=== PATIENT | male | born 1980 | race Caucasian/White ===

== ENCOUNTER 2017-05-15 08:43 | Emergency (ER) | payer SELFPAY ==
[2017-05-15] MEDS ORDERED: AMOXicillin 250 MG CAP ONE (09:51)
--- NOTE | 2017-05-15 21:15 | RAD ---
CHEST TWO VIEWS 05/15/17 The heart is normal in size and the lungs are clear. There is no current sign of pneumonia. No pleura l effusion was seen. Thoracolumbar scoliosis convexed right was noted. There may be some calcified gr anulomas on the right. IMPRESSION: No acute finding. POS: HOME
== END 2017-05-15 09:55 | disposition home or self-care (01) ==
LOC: BURERS 08:43
DX: J20.9 Acute bronchitis, unspecified (principal); F17.210 Nicotine dependence, cigarettes, uncomplicated
CPT/HCPCS: 71046